=== PATIENT | male | born 1940 | race Asian ===

== ENCOUNTER 2018-10-14 09:37 | Emergency (ER) | payer MEDICAID, MEDICARE, OTHER ==
[~2018-10-14] VITALS: Ht 165.1 cm; Wt 71.0 kg
[~2018-10-14 09:37] MED LIST: AMLO-218 PO; INDO50CA PO; LOSARTAN
[2018-10-14 09:45] VITALS: Ht 165.1 cm; Wt 71.0 kg
[2018-10-14] MEDS ORDERED: ASPIRIN 325 MG TAB PO STA (10:17)
[2018-10-14] MEDS ORDERED: NITROGLYCERIN (SL) 0.4 MG TAB SL PRN (11:00)
[2018-10-14] MEDS ORDERED: BICA50TA47 PO (11:05)
[2018-10-14] MEDS ORDERED: HYDR200T39 PO (11:06)
[2018-10-14] MEDS ORDERED: AMLO-147 PO (11:06)
[2018-10-14] MEDS ORDERED: DOXA4TAB3 PO (11:07)
--- NOTE | 2018-10-14 11:28 | ERD ---
ER Documentation Chief Complaint Chief Complaint mid sternal chest pain with inspiration since last night HPI This is an 78-year-old male with a past medical history of hypertension high cholesterol and prostate carcinoma. The patient states his recent PSA is 10 and is currently on bicalutamide for maintenance of his prostate carcinoma. The patient indicates that yesterday evening he developed some chest pain. This occurred roughly 12 hours prior to arrival. The patient states that the chest pain lasted for roughly several hours and then spontaneously resolved. However he continued to have recurrence of the chest pain which prompted him to come to the emergency department to be further evaluated. The pain did radiate to his left arm but not to his neck or jaw. The patient denied any shortness of breath or associated symptoms of nausea vomiting or diaphoresis. He described the pain as a sharp shooting pain that was also exacerbated when he would lift the left upper extremity. The patient also has a history of rheumatoid arthritis. He is on hydrochloroquin and takes 5 mg of prednisone p.o. The patient denies any shortness of breath at rest or exertion. He also denies any abdominal pain. He said no recent fever shaking or chills. ROS All systems reviewed and are negative except as per history of present illness. Medications Home Meds Reported Medications Doxazosin Mesylate* (Doxazosin Mesylate*) 4 Mg Tablet, 4 MG PO HS, TAB 10/14/18 Hydroxychloroquine Sulfate* (Hydroxychloroquine Sulfate*) 200 Mg Tablet, 300 MG PO DAILY, TAB 10/14/18 Amlodipine Besylate* (Amlodipine Besylate*) 10 Mg Tablet, 10 MG PO DAILY, #30 TAB 10/14/18 Bicalutamide* (Bicalutamide*) 50 Mg Tablet, 50 MG PO DAILY, TAB 10/14/18 Discontinued Reported Medications [Losartan] No Conflict Check 08/09/12 Amlodipine Besylate* (Norvasc*) 10 Mg Tablet, 10 MG PO DAILY, 0 Refills 04/19/10 Indomethacin (Indomethacin) 50 Mg Capsule, 50 MG PO TID PRN, 0 Refills 04/19/10 Allergies Allergies: Coded Allergies: No Known Allergy (Verified , 10/14/18) PMhx/Soc History of Surgery: Yes (CYST REMOVAL RIGHT ARM) Anesthesia Reaction: No Hx Neurological Disorder: No Hx Respiratory Disorders: No Hx Cardiac Disorders: Yes (HTN) Hx Psychiatric Problems: No Hx Miscellaneous Medical Probl: Yes (PROSTATE) Hx Alcohol Use: No Hx Substance Use: No Hx Tobacco Use: No Physical Exam Vitals Vital Signs Date Temp Pulse Resp B/P (MAP) Pulse Ox O2 O2 Flow FiO2 Time Delivery Rate 10/14/18 97.8 60 18 179/77 97 09:45 (111) Physical Exam Constitutional:Well-developed. Well-nourished. HEENT:Normocephalic. Atraumatic.Pupils were equal round reactive to light. Moist mucous membranes.No tonsillar exudates. Neck: No nuchal rigidity. No lymphadenopathy. No posterior cervical spine tenderness or step-offs. Respiratory: Not using accessory muscles of respiration.Lungs were clear to auscultation bilaterally. No rhonchi. No rales. No wheezing. Cardiovascular: Regular rate regular rhythm.No murmurs. No rubs were appreciated.S1, S2 normal. Distal pulses are palpable 2+ bilaterally. Pain in left chest wall exacerbated with horizontal movement of the left arm. Reproducible tenderness over the left axilla and left chest wall. GI: Abdomen was soft. Nontender. Non Distended. No pulsatile abdominal masses or bruits. No rebound. No guarding. Bowel sounds were present and normal. NEURO: Patient was alert, awake, orientated x3.No facial droop. Gait observed and normal with no ataxia.Speech had regular rate and rhythm. No focal neurol ogical deficits. Result Diagram: 10/14/18 1017 10/14/18 1012 Results 24 hrs Laboratory Tests Test 10/14/18 10:12 10/14/18 10:17 Prothrombin Time 11.7 Sec Prothrombin Time Ratio 0.9 INR International Normalized Ratio 0.85 Activated Partial Thromboplast Time 25.5 Sec Sodium Level 142 mmol/L Potassium Level 4.1 mmol/L Chloride Level 106 mmol/L Carbon Dioxide Level 28 mmol/L Anion Gap 8 Blood Urea Nitrogen 26 mg/dl Creatinine 1.36 mg/dl Est Glomerular Filtrat Rate mL/min mL/min Glucose Level 112 mg/dl Calcium Level 9.0 mg/dl Total Bilirubin 1.0 mg/dl Direct Bilirubin 0.00 mg/dl Indirect Bilirubin 1.0 mg/dl Aspartate Amino Transf (AST/SGOT) 35 IU/L Alanine Aminotransferase (ALT/SGPT) 33 IU/L Alkaline Phosphatase 71 IU/L Creatine Kinase 198 IU/L Creatine Kinase Index 0.6 Creatinine Kinase MB (Mass) 1.17 ng/ml Troponin I < 0.012 ng/ml B-Type Natriuretic Peptide 250 PG/ML Total Protein 7.8 g/dl Albumin 4.3 g/dl Globulin 3.50 g/dl Albumin/Globulin Ratio 1.22 White Blood Count 6.2 10^3/ul Red Blood Count 4.65 10^6/ul Hemoglobin 13.8 g/dl Hematocrit 41.7 % Mean Corpuscular Volume 89.7 fl Mean Corpuscular Hemoglobin 29.7 pg Mean Corpuscular Hemoglobin Concent 33.1 g/dl Red Cell Distribution Width 14.0 % Platelet Count 149 10^3/UL Mean Platelet Volume 11.0 fl Immature Granulocytes % 0.300 % Neutrophils % 44.4 % Lymphocytes % 42.8 % Monocytes % 9.6 % Eosinophils % 2.4 % Basophils % 0.5 % Nucleated Red Blood Cells % 0.0 /100WBC Immature Granulocytes # 0.020 10^3/ul Neutrophils # 2.8 10^3/ul Lymphocytes # 2.7 10^3/ul Monocytes # 0.6 10^3/ul Eosinophils # 0.2 10^3/ul Basophils # 0.0 10^3/ul Nucleated Red Blood Cells # 0.0 10^3/ul Current Medications Medications Dose Sig/Terrell Start Time Status Last (Trade) Ordered Route PRN Stop Time Admin Dose Reason Admin Aspirin 325 mg ONCE STAT 10/14/18 DC 10/14/18 (Aspirin) PO 10:17 11:07 10/14/18 10:19 1 tab Q5M UP TO 3 10/14/18 10/14/18 Nitroglycerin DOSES PRN 11:00 11:07 SL .CHEST (Nitroglyceri PAIN n (Sl Tab) 0.4 Mg) Procedures/MDM The patient presented to the emergency department complaining of chest pain. My clinical evaluation and workup was to distinguish minor causes of chest pain from acute life threatening cardiopulmonary causes such as myocardial infarction, pulmonary embolism, aortic dissection, esophageal rupture, cardiac tamponade, The patient was placed on a cardiac catheterization technologist, continuous pulse oximetry and IV access established by nursing staff. The patients chest pain was reproduced by palpation and horizontal flexion of the arms. It was my clinical impression that the pain was a result of inflammation of the skin and subcutaneous structures of the chest wall versus myocardial ischemia. I felt the patient had low-risk chest pain and could therefore be safely discharged with close follow-up. The patient was placed on a cardiac catheterization technologist and continuous pulse oximetry. IV access established by nursing staff. The patient was given aspirin as well as nitroglycerin. This did not improve his symptoms but his symptoms improved with anti-inflammatories. 12 Lead EKG tracing ordered and reviewed by myself showed: Sinus bradycardia of 57 bpm and no arrhythmia. PA interval normal. QRS duration normal. No ST segment elevation No ST segment depression. No changes consistent with acute ischemia. The patient was seen and evaluated by the physician Dr. Echavarria who kindly stated he will arrange for outpatient cardiology consult. Patient is comfortable being discharged home. This did appear to be more pleuritic in nature. The patient was discharged home in fair condition. They were instructed to return to the emergency department at any time if there was any worsening of their condition. The patient stated they would follow up with their PCP in the next 24-48 hours to initiate a suitable medication regimen under the care of their PCP as well as to allow their PCP to monitor any drug reactions. The patient was discharged home with prescriptions after they gave informed consent to the new medication. They were also fully informed by myself on the adverse effects and adverse drug interactions in order to provide adequate safeguards to prevent possible adverse reactions to medications. Departure Diagnosis: Primary Impression: Pleuritic chest pain Condition: ADELE Cho MD October 14, 2018 11:28
[2018-10-14] MEDS ORDERED: NAPROXEN 500 MG TAB PO ONE (12:00)
[2018-10-14 12:50] VITALS: BP 164/65; PULSE 55; RESP 18
--- NOTE | 2018-10-14 15:37 | CONS ---
DATE OF ADMISSION: 10/14/2018 DATE OF CONSULTATION: CHIEF COMPLAINT: Pleuritic chest pain. HISTORY OF PRESENT ILLNESS: An 78-year-old very pleasant male with history of hypertension and prost ate cancer, presented to emergency room with complaint of pleuritic chest pain that he has had for se veral weeks. The patient noticed worsening of the pain. His symptoms are worse with raising the lef t arm and that taking a deep breath. He denies any exertional symptoms. No shortness of breath. No nausea, vomiting or diaphoresis. Initial evaluation in the emergency room was unremarkable. Labs w ere within normal limits. Initial troponin was negative. A 12-lead EKG showed sinus bradycardia wit h no evidence of ST-T wave changes. Heart rate was 57. PAST MEDICAL HISTORY: 1. Hypertension. 2. Prostate cancer, undergoing treatment. SOCIAL HISTORY: Patient lives at home. He appears much younger than his stated age. 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 PHYSICAL EXAMINATION: GENERAL: Well-developed, well-nourished male who is in no apparent distress. VITAL SIGNS: Stable. He is afebrile. HEENT: Extraocular muscles intact. Pupils are equal and reactive to light bilaterally. Sclerae are anicteric. Oropharynx is clear and moist. NECK: Supple, no JVD, no carotid bruits. CHEST: There is tenderness to palpation over the left axilla. LUNGS: Clear to auscultation bilaterally. CARDIAC: Regular rate and rhythm. No murmurs or gallops. ABDOMEN: Soft, nontender, nondistended, normoactive bowel sounds. EXTREMITIES: No clubbing, cyanosis, or edema. NEUROLOGIC: Nonfocal. ASSESSMENT: 1. An 78-year-old male with atypical chest pain. Pain is purely pleuritic in nature and reproducibl e by palpation of the left lateral chest. There is no associated hypoxia or tachycardia. is e xtremely unlikely. 2. Hypertension, well controlled. 3. Prostate cancer. PLAN: 1. Discharge home. The patient will be referred to cardiology as an outpatient for further evaluati on. 2. Resume home medications. 3. Follow up with PCP. Dictated By: ROGELIO MATTSON/SINAI Conf#: [id number] DID#: [id number]
== END 2018-10-14 13:00 | disposition home or self-care (01) ==
LOC: E/R 09:37
DX: R07.81 Pleurodynia (principal); I10 Essential (primary) hypertension; R07.9 Chest pain, unspecified; Z85.46 Personal history of malignant neoplasm of prostate
CPT/HCPCS: 36415; 71045; 80053; 82550; 82553; 83880; 84484; 85025; 85610; 85730; 93005

== ENCOUNTER 2018-10-15 23:54 | Emergency (ER) | payer OTHER ==
[~2018-10-15] VITALS: Ht 165.1 cm; Wt 71.7 kg
[~2018-10-15 23:54] MED LIST changes: +AMLO-147 PO; +BICA50TA47 PO; +DOXA4TAB3 PO; +HYDR200T39 PO
[2018-10-15 23:58] VITALS: Ht 165.1 cm; Wt 71.7 kg
--- NOTE | 2018-10-16 03:08 | ERD ---
ER Documentation Chief Complaint Chief Complaint blood in stool x 1 day HPI This is an 78-year-old male who presents for evaluation of blood in the stool, x2 episodes. The patient and state the patient had 2 episodes of bright red blood per rectum, he is currently no longer having any active bleeding. He denies abdominal pain, he has not had any fever, no nausea or vomiting. He has not had any chest pain or shortness of breath, he was seen here yesterday and given dose of aspirin, he is currently taking naproxen, he has no history of alcohol use. ROS All systems reviewed and are negative except as per history of present illness. Medications Home Meds Reported Medications Doxazosin Mesylate* (Doxazosin Mesylate*) 4 Mg Tablet, 4 MG PO HS, TAB 10/14/18 Hydroxychloroquine Sulfate* (Hydroxychloroquine Sulfate*) 200 Mg Tablet, 300 MG PO DAILY, TAB 10/14/18 Amlodipine Besylate* (Amlodipine Besylate*) 10 Mg Tablet, 10 MG PO DAILY, #30 TAB 10/14/18 Bicalutamide* (Bicalutamide*) 50 Mg Tablet, 50 MG PO DAILY, TAB 10/14/18 Discontinued Reported Medications [Losartan] No Conflict Check 08/09/12 Amlodipine Besylate* (Norvasc*) 10 Mg Tablet, 10 MG PO DAILY, 0 Refills 04/19/10 Indomethacin (Indomethacin) 50 Mg Capsule, 50 MG PO TID PRN, 0 Refills 04/19/10 Allergies Allergies: Coded Allergies: No Known Allergy (Verified , 10/14/18) PMhx/Soc History of Surgery: Yes (CYST REMOVAL RIGHT ARM) Anesthesia Reaction: No Hx Neurological Disorder: No Hx Respiratory Disorders: No Hx Cardiac Disorders: Yes (HTN) Hx Psychiatric Problems: No Hx Miscellaneous Medical Probl: Yes (PROSTATE BPH) Hx Alcohol Use: No Hx Substance Use: No Hx Tobacco Use: No Smoking Status: Never smoker Physical Exam Vitals Vital Signs Date Temp Pulse Resp B/P (MAP) Pulse Ox O2 O2 Flow FiO2 Time Delivery Rate 10/16/18 51 20 146/63 96 Room Air 05:00 (90) 10/16/18 53 14 172/66 97 Room Air 04:30 (101) 10/16/18 54 13 142/64 95 Room Air 04:00 (90) 10/16/18 52 13 160/65 95 Room Air 03:30 (96) 10/16/18 52 19 158/62 97 Room Air 03:00 (94) 10/16/18 60 17 168/73 97 Room Air 02:30 (104) 10/16/18 61 16 173/68 97 Room Air 01:30 (103) 10/16/18 67 15 195/69 97 Room Air 01:00 (111) 10/16/18 53 14 163/67 98 Room Air 00:30 (99) 10/16/18 60 19 166/68 97 Room Air 00:10 (100) 10/15/18 97.9 74 18 176/80 97 23:58 (112) Physical Exam Const: No acute distress Head: Atraumatic Eyes: Normal Conjunctiva ENT: Normal External Ears, Nose and Mouth. Neck: Full range of motion. No meningismus. Resp: Clear to auscultation bilaterally Cardio: Regular rate and rhythm, no murmurs Abd: Soft, non tender, non distended, no rebound or guarding. Normal bowel sounds exam: Patient with no active rectal bleeding, no evidence of external hemorrhoids, no masses or fluctuance Skin: No petechiae or rashes Back: No midline or flank tenderness Ext: No cyanosis, or edema Neur: Awake and alert Psych: Normal Mood and Affect Result Diagram: 10/16/18 0022 10/16/18 0022 Results 24 hrs Laboratory Tests Test 10/16/18 00:22 White Blood Count 7.4 10^3/ul Red Blood Count 4.23 10^6/ul Hemoglobin 12.4 g/dl Hematocrit 37.8 % Mean Corpuscular Volume 89.4 fl Mean Corpuscular Hemoglobin 29.3 pg Mean Corpuscular Hemoglobin Concent 32.8 g/dl Red Cell Distribution Width 13.8 % Platelet Count 140 10^3/UL Mean Platelet Volume 10.6 fl Immature Granulocytes % 0.400 % Neutrophils % 64.3 % Lymphocytes % 24.9 % Monocytes % 8.6 % Eosinophils % 1.5 % Basophils % 0.3 % Nucleated Red Blood Cells % 0.0 /100WBC Immature Granulocytes # 0.030 10^3/ul Neutrophils # 4.8 10^3/ul Lymphocytes # 1.9 10^3/ul Monocytes # 0.6 10^3/ul Eosinophils # 0.1 10^3/ul Basophils # 0.0 10^3/ul Nucleated Red Blood Cells # 0.0 10^3/ul Prothrombin Time 11.9 Sec Prothrombin Time Ratio 0.9 INR International Normalized Ratio 0.87 Sodium Level 139 mmol/L Potassium Level 3.9 mmol/L Chloride Level 104 mmol/L Carbon Dioxide Level 28 mmol/L Anion Gap 7 Blood Urea Nitrogen 32 mg/dl Creatinine 1.47 mg/dl Est Glomerular Filtrat Rate mL/min mL/min Glucose Level 109 mg/dl Calcium Level 9.1 mg/dl Total Bilirubin 0.7 mg/dl Direct Bilirubin 0.00 mg/dl Indirect Bilirubin 0.7 mg/dl Aspartate Amino Transf (AST/SGOT) 36 IU/L Alanine Aminotransferase (ALT/SGPT) 27 IU/L Alkaline Phosphatase 70 IU/L Total Protein 7.5 g/dl Albumin 4.2 g/dl Globulin 3.30 g/dl Albumin/Globulin Ratio 1.27 Procedures/MDM 78-year-old male presents for evaluation of rectal bleeding. On exam patient had no peritoneal signs, was well-appearing nontoxic no signs or symptoms of symptom medic anemia. CT abdomen pelvis showed diverticulosis otherwise no other acute findings. Patient's EKG showed no evidence of arrhythmia, at this point I do not suspect ischemic colitis, patient has plans for follow-up with his PMD, advised to return for any continued bleeding, any signs of traumatic anemia any abdominal pain at all, or any worsening conditions at discharge the patient was in no distress. EKG: Rate/Rhythm: Normal Sinus Rhythm QRS, ST, T-waves: No changes consistent w/ acute ischemia Impression: No evidence of ischemia or arrhythmia Departure Diagnosis: Primary Impression: Rectal bleeding Condition: Stable ANTONINO DE SANTIAGO MD Oct 16, 2018 03:07
[2018-10-16 06:33] VITALS: BP 150/64; PULSE 53; RESP 14
== END 2018-10-16 06:44 | disposition home or self-care (01) ==
LOC: E/R 23:54
DX: K62.5 Hemorrhage of anus and rectum (principal); I10 Essential (primary) hypertension; R40.2142 Coma scale, eyes open, spontaneous, at arrival to emergency department; R40.2362 Coma scale, best motor response, obeys commands, at arrival to emergency department; R40.2252 Coma scale, best verbal response, oriented, at arrival to emergency department
CPT/HCPCS: 36415; 74176; 80053; 85025; 85610; 93005